=== PATIENT | male | born 1940 | race Caucasian/White ===

== ENCOUNTER → 2017-11-23 19:57 | Outpatient (CLI) | payer OTHER, SELFPAY | PROVIDERS: Visit Provider Nurse Practitioner Family | DX: G47.33 Obstructive sleep apnea (adult) (pediatric) (principal) | CPT/HCPCS: 95810 ==

== ENCOUNTER 2022-08-02 18:36 | Emergency (ER) | payer MEDICARE, OTHER, SELFPAY ==
[2022-08-02 18:54] VITALS: BP 180/118; PULSE 106; RESP 17; TEMP 36.6; O2SAT 106; BMI 23.7
[2022-08-02 19:13] LABS: Microscopic, Urine URINE MICROSCOPIC (MICROSCOPIC)
[2022-08-02 19:30] VITALS: BP 149/108; PULSE 98; RESP 16; O2SAT 94
--- NOTE | 2022-08-02 19:30 | CT_ITS ---
PROCEDURE INFORMATION: Exam: CT Abdomen And Pelvis Without Contrast Exam date and time: 08/02/2022 7:41 PM Age: 81 years old Clinical indication: Pain; Other: Lbp; Additional info: Lower back pain. Unable to fully urinate since Monday TECHNIQUE: Imaging protocol: Computed tomography of the abdomen and pelvis without contrast. Radiation optimization: All CT scans at this facility use at least one of these dose optimization techniques: automated exposure control; mA and/or kV adjustment per patient size (includes targeted exams where dose is matched to clinical indication); or iterative reconstruction. REPORTING DATA: Count of CT and Cardiac NM exams in prior 12 months: This patient has received 0 known CTs and 0 known cardiac nuclear medicine studies in the 12 months prior to the current study. COMPARISON: No relevant prior studies available. FINDINGS: Lungs: Granulomatous calcification in the lingular portion of the left upper lobe. Severe pulmonary fibrosis in the visualized lung bases, greater on the left, with extensive fibrocystic changes. Heart: Mild cardiomegaly. Mediastinal space: The visualized distal esophagus is largely contracted without gross abnormality. Liver: Normal contour. No mass lesions. No intrahepatic biliary ductal dilatation. Gallbladder and bile ducts: The gallbladder is moderately distended without wall thickening or pericholecystic fluid. Sludge and stones are seen in the gallbladder lumen near the neck. Nondilated bile ducts. Pancreas: Normal. No inflammatory changes or ductal dilation. Spleen: Granulomatous calcifications in the spleen without acute splenic abnormality. Adrenal glands: Normal. No adrenal mass. Kidneys and ureters: Moderate bilateral hydronephrosis and hydroureter which is fairly symmetrical in appearance with no associated urolithiasis, favoring postobstructive changes related to bladder distension. Moderate symmetrical perinephric stranding. Stomach and bowel: The stomach is largely contracted. There is a 2.6 cm partially aerated duodenal diverticulum near the ampulla. The small bowel is nondilated with no gross abnormality. Moderate gas and stool in the mid and proximal colonic segments, possible constipation. Mild distal colonic diverticulosis without changes of acute diverticulitis. Appendix: The appendix is normal in caliber and demonstrates no evidence of appendicitis. Intraperitoneal space: No free fluid or air. Vasculature: No acute process. No abdominal aortic aneurysm. Mild-moderate calcific atherosclerosis. Lymph nodes: No adenopathy. Urinary bladder: Moderate-severe urinary bladder distension measuring 15 x 10 by 9 cm, estimated volume 700 mL, consider chronic partial bladder outlet obstruction due to prostate enlargement. Reproductive: Moderately enlarged prostate. Bones/joints: No acute osseous abnormalities. Osteopenia. Mild lumbar spondylosis with moderate right-sided osteoarthritic facet hypertrophy L4-L5 and L5-S1. Soft tissues: Small fatty bilateral inguinal hernias with no asociated bowel herniation or strangulation. IMPRESSION: 1. Moderate-severe urinary bladder distension with estimated volume of 700 mL, consider chronic partial bladder outlet obstruction due to prostate enlargement. 2. Moderate prostate enlargement, nonspecific. 3. Moderate bilateral symmetrical hydronephrosis and hydroureter with associated perinephric stranding and no urolithiasis or other obstructive lesions visualized. This favors postobstructive hydronephrosis related to bladder distension. 4. Severe pulmonary fibrosis. 5. Gallbladder sludge and suspected small gallst
[2022-08-02 19:31] LABS: Appearance,Urine CLEAR (Clear); Bilirubin,Urine Negative (Negative); Blood, Urine 3+ (Negative); Color,Urine YELLOW (Yellow); Glucose,Urine (UA) Negative (Negative); Ketones,Urine Negative (Negative); Leukocyte Esterase,Urine TRACE (Negative); Nitrate,Urine POSITIVE (Negative); Protein,Urine 1+ (Negative); Urobilinogen,Urine 0.2 EU/dl (0.2)
[2022-08-02 19:42] LABS: Basophils # 0.2 K/mm3 (0-0.2); Basophils % 1.5 % (0.1-2.0); Chloride 96 mmol/L (98-107); Eosinophils # 0.1 K/mm3 (0.0-0.4); Eosinophils % 0.8 % (0.1-12.0); Hematocrit 47.7 % (42.0-52.0); Hemoglobin 15.7 g/dL (14.1-18.0); Lymphocytes # 2.8 K/mm3 (0.7-4.5); Lymphocytes % 21.8 % (10-50); Mean Corpuscular HGB Conc 32.9 g/dL (31.8-35.4); Mean Corpuscular Hemoglobin 30.5 pg (27.0-31.2); Mean Corpuscular Volume 92.4 fl (80-94); Mean Platelet Volume 8.6 fl (7.4-10.4); Monocytes # 0.8 K/mm3 (0.1-1.0); Monocytes % 6.1 % (1.7-9.3); Neutrophils % 69.9 % (37.0-80.0); Platelet Count 219 K/mm3 (142-424); Red Blood Count 5.16 M/mm3 (4.60-6.20); Red Cell Distribution Width 13.2 % (11.5-17.5); Sodium 133 mmol/L (136-145); White Blood Count 12.9 K/mm3 (4.8-10.8)
[2022-08-02 19:44] LABS: Creatinine Clearance Estimated 38 mL/min (50-200); Estimated Glomerular Filt Rate 39 ml/min (>60); GFR (African American) 47 ML/MIN (>60)
[2022-08-02 19:45] LABS: Alanine Aminotransferase 18 U/L (12-78); Albumin Level 4.1 g/dl (3.5-5.0); Alkaline Phosphatase 65 U/L (38-126); Aspartate Amino Transferase 38 U/L (17-59); Bilirubin,Total 0.7 mg/dl (0.2-1.3); Calcium 8.4 mg/dl (8.4-10.2); Glucose 118 mg/dl (74-100)
[2022-08-02 20:01] LABS: Potassium 3.7 mmoL/L (3.5-5.1)
--- NOTE | 2022-08-02 20:02 | HMH.EDUROGM ---
Discharge Plan Disposition Patient Disposition: Home, Self-Care Prescriptions Prescriptions: New cephalexin [cephalexin] 500 mg capsule 500 mg PO TID Qty: 21 0RF tamsulosin [Flomax] 0.4 mg capsule 0.4 mg PO DAILY Qty: 30 0RF No Action losartan 100 mg tablet 100 mg PO ONCE salsalate 750 mg tablet 1,500 mg PO BID tamsulosin 0.4 mg capsule,extended release 24hr 0.4 mg PO ONCE simvastatin 20 mg tablet 20 mg PO HS Referrals Follow up/Referrals: Clarissa Scherer [Primary Care Provider] - See instructions Clinical Impressions Clinical Impression: Acute retention of urine, Urinary tract infection, Bladder outlet obstruction, Renal insufficiency Instructions Patient Instructions: DI for Urinary Tract Infection (UTI), DI for Urinary Tract Infection in Children, How to Care for Your Patterson Catheter -- Male Discharge ED Provider: Daniella (ED),Didier Wasserman Male Urogenital HPI General Chief complaint: Urogenital-Male Stated complaint: Distress,Vomiting BP high Time Seen by Provider: 08/02/22 20:02 Mode of Arrival: Wheelchair Source of Information: Patient, Spouse and Medical Record Limitations: No Limitations Description of Symptoms (Recalled from ER Triage Doc. by RN): pt to ED with pain while urinating since monday accompanied by lower back pain and nausea since last night. pt denies any chest pain or SOB. pt also reports hypertension over the last 2 months that he is sseing his PCP for . History of Present Illness HPI Narrative: pt with diff urinating and has hx of lower abd pain and back pain - no fever or hematuria Onset (ago): day(s) Duration: intermittent Severity: moderate Reports denies other symptoms Related Data Home Medications Medication Instructions Recorded Confirmed losartan 100 mg tablet 100 mg PO ONCE High blood pressure 09/28/17 08/02/22 salsalate 750 mg tablet 1,500 mg PO BID Arthritis 09/28/17 08/02/22 simvastatin 20 mg tablet 20 mg PO HS High cholesterol 09/28/17 08/02/22 tamsulosin 0.4 mg capsule 0.4 mg PO ONCE enlarged prostate 09/28/17 08/02/22 Previous Rx's Medication Instructions Recorded cephalexin 500 mg capsule 500 mg PO TID #21 caps 08/02/22 tamsulosin 0.4 mg capsule (Flomax) 0.4 mg PO DAILY #30 caps 08/02/22 Allergies Allergy/AdvReac Type Severity Reaction Status Date / Time diltiazem Allergy Unknown Verified 08/02/22 20:19 lisinopril Allergy Unknown Verified 08/02/22 20:19 pravastatin [From Pravachol] Allergy Unknown Verified 08/02/22 20:19 rofecoxib Allergy Unknown Verified 08/02/22 20:19 Sulfa (Sulfonamide Allergy Unknown Verified 08/02/22 20:19 Antibiotics) [facility] Disclaimer: The information contained in this section may have been updated after the patient was seen, as this information can be updated by other users. Social History Smoking Status: Never smoker alcohol intake: never counseling provided: none substance use type: denies use current occupational status: retired Travel in the last 8 weeks: None ROS Obtained: Yes All systems reviewed & no additional complaints except as documented Physical Exam General General appearance: alert Head Head exam: normocephalic Eye Eye exam: Present PERRL and EOMI; Absent scleral icterus ENT ENT exam: Present mucous membranes moist Neck Neck exam: Present trachea midline Respiratory Respiratory exam: Absent respiratory distress Cardiovascular Cardiovascular exam: Present regular rate Abdominal Exam Abdominal exam: Present soft Abdominal tenderness: Present suprapubic and mild Extremities Exam Extremities exam: Present full ROM Neurological Exam Neurological exam: Present alert, oriented X3 and CN II-XII intact; Absent motor sensory deficit Psychiatric Psychiatric exam: Present normal affect Skin Skin exam: Absent rash Medical Decision Making Medical Records Medical records reviewed: Yes I reviewed the patient's medical records. Steffen
[2022-08-02 20:03] LABS: Blood Urea Nitrogen 23 mg/dl (9-20)
[2022-08-02 20:04] LABS: Albumin/Globulin Ratio 1.2 (1.1-1.8); Anion Gap 11.7 mEq/L (5-15); Carbon Dioxide 29 mmol/L (22.0-30.0); Globulin 3.3 g/dL (1.3-3.2); Total Protein,Serum 7.4 g/dl (6.3-8.2)
--- NOTE | 2022-08-02 20:10 | PC.NURSE ---
Dr. Brewer at [facility] to update pt
[2022-08-02 20:19] LABS: Bacteria,Urine Trace /lpf; RBC,Urine 20-50 #/hpf (0-3); Squamous Epithelial Cell,Urine Occasional #/hpf (0-5)
[2022-08-02 21:03] VITALS: BP 158/100
[2022-08-02 21:12] VITALS: BP 155/98; PULSE 89; RESP 18; TEMP 36.6; O2SAT 99
--- NOTE | 2022-08-02 21:18 | PC.NURSE ---
Patterson catheter bag replaced with leg bag for pt to wear home. Pt and educated on care, draining and removal 3hr prior to his follow up appointment. 10ml syringe supplied.
== END 2022-08-02 21:34 | disposition home or self-care (01) ==
PROVIDERS: Emergency Medicine; Emergency Provider Emergency Medicine; PCP Nurse Practitioner Family
DX: R33.9 Retention of urine, unspecified (principal); N39.0 Urinary tract infection, site not specified; N32.0 Bladder-neck obstruction; N28.9 Disorder of kidney and ureter, unspecified
CPT/HCPCS: 51702; 74176; 80053; 81001; 85025; 96361; 96374; 96375; 99284; 99285; J0131; J0696

== ENCOUNTER 2023-07-24 12:21 | Emergency (ER) | payer MEDICARE, OTHER, SELFPAY ==
[2023-07-24] VITALS (9 sets, daily range): BP systolic 124–149; BP diastolic 76–87; PULSE 82–92; RESP 18–20; TEMP 36.6–36.7; O2SAT 92–95; BMI 22.6
--- NOTE | 2023-07-24 12:35 | PC.NURSE ---
placed pt in lobby after triage assessment. Pt stable at this time, VSS, pt and family aware that we will move pt back to a room apolinar. pt understands we Will continue to monitor the pt from the lobby until then.
--- NOTE | 2023-07-24 13:11 | HMH.EDGENADL ---
Discharge Plan Disposition Patient Disposition: Home, Self-Care Condition: Good Prescriptions Prescriptions: New cefpodoxime 200 mg tablet 200 mg PO BID 14 Days Qty: 28 0RF Rx Instructions: must administer with a meal/food No Action losartan 100 mg tablet 100 mg PO ONCE salsalate 750 mg tablet 1,500 mg PO BID tamsulosin 0.4 mg capsule,extended release 24hr 0.4 mg PO ONCE simvastatin 20 mg tablet 20 mg PO HS cephalexin [cephalexin] 500 mg capsule 500 mg PO TID Qty: 21 0RF tamsulosin [Flomax] 0.4 mg capsule 0.4 mg PO DAILY Qty: 30 0RF Referrals Follow up/Referrals: Provider,Referral, MD [Primary Care Provider] - See instructions Activity Restrictions/Add. Instructions Additional Instructions/Restrictions: Please follow-up with your urologist. Please follow-up with your primary care doctor. I encourage you to return with new or worsening symptoms. Clinical Impressions Clinical Impression: Acute retention of urine Instructions Patient Instructions: DI for Urinary Tract Infection (UTI), DI for Urinary Tract Infection in Children Discharge ED Provider: Clayton Guajardo General Adult HPI General Chief complaint: Urogenital-Male Stated complaint: post op 07/18, pain, swelling Time Seen by Provider: 07/24/23 13:02 History of Present Illness HPI narrative: Patient presents with gradual in onset severe suprapubic abdominal pain with associated in the area which has been congruent with acute episode of urinary retention in the past. He does note cholecystectomy approximately 1 week ago but has had otherwise benign postoperative course. No preceding fevers or chills. The pain is not radiating. Last episode of urination was yesterday. Family states he has been taking supplement that turns his urine red in color Please note that above description of symptoms, in this electronic medical record under categorization of recalled from ER triage doctor by RN are reflective of an initial nursing assessment, however, is not reflective of my full history and physical exam that was personally taken and clarified. Consequentially, this preceding description of symptoms, which may include the patient's categorized chief complaint in the EMR, do not reflect my personal clinical impression, and the ultimate description of history of present illness and patient stated complaints should be deferred to this section of the note. Unless stated otherwise or congruent with this section of the note, additional signs, symptoms, or incongruence should be interpreted as inaccurate with my clinical impression. Related Data Home Medications Medication Instructions Recorded Confirmed losartan 100 mg tablet 100 mg PO ONCE High blood pressure 09/28/17 08/02/22 salsalate 750 mg tablet 1,500 mg PO BID Arthritis 09/28/17 08/02/22 simvastatin 20 mg tablet 20 mg PO HS High cholesterol 09/28/17 08/02/22 tamsulosin 0.4 mg capsule 0.4 mg PO ONCE enlarged prostate 09/28/17 08/02/22 Previous Rx's Medication Instructions Recorded cephalexin 500 mg capsule 500 mg PO TID #21 caps 08/02/22 tamsulosin 0.4 mg capsule (Flomax) 0.4 mg PO DAILY #30 caps 08/02/22 cefpodoxime 200 mg tablet 200 mg PO BID 14 days #28 tabs 07/24/23 Allergies Allergy/AdvReac Type Severity Reaction Status Date / Time diltiazem Allergy Unknown Verified 08/02/22 20:19 lisinopril Allergy Unknown Verified 08/02/22 20:19 pravastatin [From Pravachol] Allergy Unknown Verified 08/02/22 20:19 rofecoxib Allergy Unknown Verified 08/02/22 20:19 Sulfa (Sulfonamide Allergy Unknown Verified 08/02/22 20:19 Antibiotics) [facility] Disclaimer: The information contained in this section may have been updated after the patient was seen, as this information can be updated by other users. Social History (Updated 08/02/22 @ 21:08 by Didier Brewer (AYDEN)MD) Smoking Status: Never smoker alcohol intake: never counseling provided: none substance use type: denies use current occupational status: retired Travel in the last 8 weeks: None ROS Obtained: Yes Systems reviewed as appropriate & no additional complaints except as documented As per HPI Physical Exam General General appearance: alert and in distress Head Head exam: atraumatic and normocephalic Eye Eye exam: Present normal appearance Neck Neck exam: Present normal inspection Chest Chest inspection: Present normal inspection and symmetric chest wall rise Respiratory Respiratory exam: Present normal lung sounds bilaterally; Absent respiratory distress Cardiovascular Cardiovascular exam: Present regular rate and normal rhythm Abdominal Exam Abdominal exam: Present soft and tenderness Abdominal tenderness: Present suprapubic Neurological Exam Neurological exam: Present alert and oriented X3 Psychiatric Psychiatric exam: Present normal affect and normal mood Skin Skin exam: Present warm and dry Medical Decision Making Medical Records Medical records reviewed: Yes I reviewed the patient's medical records. Steffen Inquiry Pt receiving controlled substance: No Vital Signs: 07/24/23 12:35 07/24/23 13:23 07/24/23 13:30 Temperature 98.0 F Temperature Source Oral Pulse Rate 91 H 86 Pulse Rate [Left Radial] 92 H Respiratory Rate 18 Blood Pressure 149/87 H 135/82 Blood Pressure [Right Arm] 134/84 Blood Pressure Mean 125 106 Blood Pressure Mean [Right Arm] 100 Blood Pressure Source [Right Arm] Automatic Cuff Blood Pressure Position [Right Arm] Sitting 02 Sat by Pulse Oximetry 93 L 92 L 95 Oxygen Delivery Method Room Air 07/24/23 14:00 07/24/23 14:30 07/24/23 15:00 Temperature Temperature Source Pulse Rate 86 85 83 Pulse Rate [Left Radial] Respiratory Rate 20 20 20 Blood Pressure 143/85 H 124/76 143/81 H Blood Pressure [Right Arm] Blood Pressure Mean 99 95 101 Blood Pressure Mean [Right Arm] Blood Pressure Source [Right Arm] Blood Pressure Position [Right Arm] 02 Sat by Pulse Oximetry 95 94 L 94 L Oxygen Delivery Method 07/24/23 15:30 07/24/23 16:59 07/24/23 16:00 Temperature 98 F Temperature Source Pulse Rate 82 82 83 Pulse Rate [Left Radial] Respiratory Rate 20 18 Blood Pressure 128/83 138/79 134/83 Blood Pressure [Right Arm] Blood Pressure Mean 100 Blood Pressure Mean [Right Arm] Blood Pressure Source [Right Arm] Blood Pressure Position [Right Arm] 02 Sat by Pulse Oximetry 92 L 94 L Oxygen Delivery Method Room Air Lab Data Lab Results 07/24/23 13:20: Urine Color Yellow, Urine Appearance Clear, Urine pH 5.5, Ur Specific [place] 1.015, Urine Protein 1+, Urine Glucose (UA) 1+, Urine Ketones Negative, Urine Blood Negative, Urine Nitrate Positive, Urine Bilirubin Negative, Urine Urobilinogen 2.0, Ur Leukocyte Esterase Trace, Urine RBC None, Urine WBC Occasional, Ur Squamous Epith Cells Occasional, Urine Bacteria 1+ 07/24/23 13:49: WBC 14.8 H, RBC 4.46 L, Hgb 13.6 L, Hct 42.4, MCV 95.1 H, MCH 30.5, MCHC 32.0, RDW 13.1, Plt Count 230, MPV 8.3, Neut % (Auto) 71.3, Lymph % (Auto) 21.3, [place] % (Auto) 6.4, Eos % (Auto) 1.0, Baso % (Auto) 0.1, Neut # (Auto) 10.5 H, Lymph # (Auto) 3.2, [place] # (Auto) 0.9, Eos # (Auto) 0.2, Baso # (Auto) 0.0, Sodium 135 L, Potassium 3.9, Chloride 102, Carbon Dioxide 32 H, Anion Gap 4.9 L, BUN 42 H, Creatinine 1.60 H, Estimated Creat Clear 37, Estimated GFR 41 L, Est GFR ( Amer) 50 L, Glucose 117 H, Calcium 8.6, Total Bilirubin 0.8, AST 28, ALT 19, Alkaline Phosphatase 86, Total Protein 6.8, Albumin 3.5, Globulin 3.3 H, Albumin/Globulin Ratio 1.1 07/24/23 13:49 07/24/23 13:49 Orders (Tests/Meds): ED MEDICATIONS Discontinued Medications Generic Name Dose Route Start Last Admin Trade Name Lior PRN Reason Stop Dose Admin Cocaine HCl 1 ml 07/24/23 13:10 07/24/23 13:44 Cocaine 4% Topical Soln 4ml Bottle TP 07/24/23 13:11 Not Given ONCE ONE Epinephrine HCl 1 mg 07/24/23 13:10 07/24/23 13:45 Epinephrine 1 Mg/Ml Ampul TP 07/24/23 13:11 Not Given ONCE ONE Lidocaine HCl 1 ml 07/24/23 13:10 07/24/23 13:41 Lidocaine 2% Urojet 10ml TP 07/24/23 13:11 1 ml ONCE ONE Administration Oxycodone HCl 5 mg 07/24/23 13:10 07/24/23 13:39 Oxycodone 5mg Immediate Release Tablet PO 07/24/23 13:11 5 mg ONCE ONE Administration ORDERS Category Date Time Status CBC w/Auto Diff [Complete Blood Count Auto Diff] Stat Lab 07/24/23 13:49 Completed CMP [Comprehensive Metabolic Panel] Stat Lab 07/24/23 13:49 Completed Urinalysis and Microscopic Stat Lab 07/24/23 13:20 Completed Medical Decision Narrative: Patient with history and exam per above presenting for evaluation of suprapubic abdominal pain, urinary retention Diagnoses considered include acute urinary retention, cystitis, postrenal azotemia, electrolyte abnormality, among others. ED workup and treatment included: ED MEDICATIONS Discontinued Medications Generic Name Dose Route Start Last Admin Trade Name Lior PRN Reason Stop Dose Admin Cocaine HCl 1 ml 07/24/23 13:10 07/24/23 13:44 Cocaine 4% Topical Soln 4ml Bottle TP 07/24/23 13:11 Not Given ONCE ONE Epinephrine HCl 1 mg 07/24/23 13:10 07/24/23 13:45 Epinephrine 1 Mg/Ml Ampul TP 07/24/23 13:11 Not Given ONCE ONE Lidocaine HCl 1 ml 07/24/23 13:10 07/24/23 13:41 Lidocaine 2% Urojet 10ml TP 07/24/23 13:11 1 ml ONCE ONE Administration Oxycodone HCl 5 mg 07/24/23 13:10 07/24/23 13:39 Oxycodone 5mg Immediate Release Tablet PO 07/24/23 13:11 5 mg ONCE ONE Administration ORDERS Category Date Time Status CBC w/Auto Diff [Complete Blood Count Auto Diff] Stat Lab 07/24/23 13:49 Completed CMP [Comprehensive Metabolic Panel] Stat Lab 07/24/23 13:49 Completed Urinalysis and Microscopic Stat Lab 07/24/23 13:20 Completed Labs were independently interpreted by me, significant for urinalysis with positive nitrates, pyuria, bacteriuria. No evidence of acute azotemia at this time. Patient reports complete resolution of symptoms after administration of Patterson catheter. I did complete an extensive reassessment and shared medical decision making regarding his onset of symptoms and proximity to cholecystectomy in regard to further workup, however patient and family member at bedside declined at this time. My clinical impression at this time is most consistent with acute urinary retention, for which patient will follow-up either in the emergency department or with urology I discussed my clinical impression with patient and answered all questions. At this time, the evidence for any other entities in the differential is insufficient to warrant any further testing or ED observation. This was explained to the patient. The patient was advised that persistent or worsening symptoms require further evaluation. I confirmed the patient's understanding of this discussion. Critical Care Critical Care Time Critical Care Time: No
[2023-07-24 13:28] LABS: Microscopic, Urine URINE MICROSCOPIC (MICROSCOPIC)
[2023-07-24 13:31] LABS: Appearance,Urine CLEAR (Clear); Blood, Urine Negative (Negative); Color,Urine YELLOW (Yellow); Glucose,Urine (UA) 1+ (Negative); Ketones,Urine Negative (Negative); Leukocyte Esterase,Urine TRACE (Negative); Nitrate,Urine POSITIVE (Negative); PH,Urine 5.5 (5.0-8.5); Protein,Urine 1+ (Negative); Specific Gravity, Urine 1.015 (1.005-1.030)
[2023-07-24] MEDS: OXYCODONE 5MG IMMEDIATE RELEASE TABLET 5 MG PO (13:39)
[2023-07-24] MEDS: LIDOCAINE 2% UROJET 10ML TP (13:41)
[2023-07-24 13:50] LABS: Bilirubin,Urine Negative (Negative)
[2023-07-24 13:54] LABS: WBC,Urine Occasional #/hpf (0-3)
[2023-07-24 13:56] LABS: Bacteria,Urine 1+ /lpf; Squamous Epithelial Cell,Urine Occasional #/hpf (0-5)
[2023-07-24 14:07] LABS: Chloride 102 mmol/L (98-107); Potassium 3.9 mmoL/L (3.5-5.1); Sodium 135 mmol/L (136-145)
[2023-07-24 14:10] LABS: Alanine Aminotransferase 19 U/L (12-78); Albumin Level 3.5 g/dl (3.5-5.0); Albumin/Globulin Ratio 1.1 (1.1-1.8); Alkaline Phosphatase 86 U/L (38-126); Anion Gap 4.9 mEq/L (5-15); Aspartate Amino Transferase 28 U/L (17-59); Bilirubin,Total 0.8 mg/dl (0.2-1.3); Blood Urea Nitrogen 42 mg/dl (9-20); Calcium 8.6 mg/dl (8.4-10.2); Carbon Dioxide 32 mmol/L (22.0-30.0); Creatinine Clearance Estimated 37 mL/min (50-200); Estimated Glomerular Filt Rate 41 ml/min (>60); GFR (African American) 50 ML/MIN (>60); Globulin 3.3 g/dL (1.3-3.2); Glucose 117 mg/dl (74-100); Total Protein,Serum 6.8 g/dl (6.3-8.2)
[2023-07-24 14:15] LABS: Basophils % 0.1 % (0.1-2.0); Eosinophils # 0.2 K/mm3 (0.0-0.4); Hematocrit 42.4 % (42.0-52.0); Hemoglobin 13.6 g/dL (14.1-18.0); Lymphocytes # 3.2 K/mm3 (0.7-4.5); Lymphocytes % 21.3 % (10-50); Mean Corpuscular Hemoglobin 30.5 pg (27.0-31.2); Mean Corpuscular Volume 95.1 fl (80-94); Mean Platelet Volume 8.3 fl (7.4-10.4); Monocytes # 0.9 K/mm3 (0.1-1.0); Monocytes % 6.4 % (1.7-9.3); Neutrophils # 10.5 K/mm3 (1.8-7.8); Neutrophils % 71.3 % (37.0-80.0); Platelet Count 230 K/mm3 (142-424); Red Blood Count 4.46 M/mm3 (4.60-6.20); Red Cell Distribution Width 13.1 % (11.5-17.5); White Blood Count 14.8 K/mm3 (4.8-10.8)
--- NOTE | 2023-07-24 14:17 | PC.NURSE ---
rounded on pt, no needs at this time, pt states that this is the best he has felt in about a month. Family at bs
== END 2023-07-24 17:00 | disposition home or self-care (01) ==
PROVIDERS: Emergency Provider Emergency Medicine
DX: N99.89 Other postprocedural complications and disorders of genitourinary system (principal); R33.9 Retention of urine, unspecified; R10.2 Pelvic and perineal pain
CPT/HCPCS: 80053; 81001; 85025; 99284